=== PATIENT | male | born 1995 | race Caucasian/White ===

== ENCOUNTER 2024-09-22 00:42 | Emergency (ER) | payer MEDICAID, OTHER ==
[2024-09-22] MEDS: Lidocaine 1% with EPINEPHrine 1:100,000 20 ML MDV ONE (02:38)
[2024-09-22] MEDS: Lidocaine 1% with EPINEPHrine 1:100,000 20 ML MDV INJECT ONE (02:38)
[2024-09-22] MEDS: cefTRIAXone 1 GM, Lidocaine 1% 2.1 ML IM ONE (02:40)
== END 2024-09-22 02:55 | disposition home or self-care (01) ==
LOC: DL.ED 00:42
DX: S01.551A Open bite of lip, initial encounter (principal); F17.210 Nicotine dependence, cigarettes, uncomplicated; W54.0XXA Bitten by dog, initial encounter
CPT/HCPCS: 12013; 96372; 99282; 99283; J0696; J2003; J2004

== ENCOUNTER 2024-11-26 08:01 | Emergency (ER) | payer MEDICAID ==
[2024-11-26] MEDS: Lidocaine/EPINEPHrine/Tetracaine Soln 5 ML Each TOP ONE (08:25)
[2024-11-26] MEDS: Lidocaine 1% with EPINEPHrine 1:100,000 20 ML MDV INJECT ONE (08:25)
== END 2024-11-26 09:15 | disposition home or self-care (01) ==
LOC: DL.ED 08:01
DX: L02.214 Cutaneous abscess of groin (principal); L03.314 Cellulitis of groin
CPT/HCPCS: 10060; 99283; A9270; J2004